=== PATIENT | male | born 1960 | race Caucasian/White ===

== ENCOUNTER 2021-03-14 06:07 | Emergency (ER) | payer OTHER, SELFPAY ==
[2021-03-14] VITALS (15 sets, daily range): BP systolic 113–141; BP diastolic 73–90; PULSE 59–110; RESP 12–16; TEMP 36.6–36.8; O2SAT 93–98
--- NOTE | ~2021-03-14 | XR_ITS ---
EXAMINATION: XR chest 2V DATE: 03/14/2021 06:28 INDICATION: Chest pain TECHNIQUE: PA and lateral views of the chest were obtained. COMPARISON: None FINDINGS: Lungs are hyperexpanded but clear, no focal airspace opacities, pulmonary edema, pleural effusion or pneumothorax. The cardiomediastinal silhouette is normal. Mild thoracic spondylosis with minimal ante rior wedging of a couple lower thoracic vertebral bodies. IMPRESSION: 1. No acute cardiopulmonary disease. Reviewed, dictated and finalized at location A.
--- NOTE | 2021-03-14 06:08 | ECG_ITS ---
Measurements Intervals [place] Rate: 89 P: 82 ID: [id number] QRS: 58 QRSD: 96 T: 75 QT: 333 QTc: 407 Interpretive Statements SINUS RHYTHM POSSIBLE LEFT ATRIAL ENLARGEMENT BASELINE ARTIFACT- I, III, AVR, AVL, AVF, V1-V2 BORDERLINE ECG Electronically Signed On 03-14-2021 6:28:49 CDT by Lang Whitmore D.O.
--- NOTE | 2021-03-14 06:08 | ED.CHESTPAIN ---
HPI - Chest Pain General Chief Complaint: Chest Pain Stated Complaint: CP Time Seen by Provider: 03/14/21 06:08 Source: patient and EMS Mode of arrival: EMS Limitations: no limitations History of Present Illness HPI narrative: Patient is a 61-year-old male who presents for evaluation of chest pain. Patient awakened this morning and noticed that he had dull, aching chest pain in the center of his chest. Described as a pressure without radiation to the back, flank, jaw, neck, or shoulder. Patient without associated diaphoresis. No shortness of breath. He does report mild cough which is chronic for him. Pain has been intermittent over the past 90 days. Patient states that he received his Covid vaccination and has been dealing with many issues since the vaccine. Patient had received 2 doses of Moderna vaccination. He denies any history of Covid infection. No history of hospitalizations. Patient denies history of stress test. No history of heart attack. He does smoke cigarettes. He denies alcohol or drug use. No leg swelling or calf pain. No long recent car or air travel. Patient called EMS this morning when he felt unwell. An EKG was obtained and was normal per EMS. He was given full dose aspirin as well as 2 sprays of nitroglycerin with immediate improvement in his symptoms. Patient denies concurrent diaphoresis, shortness of breath, lightheadedness or nausea with the chest pain. Related Data Home Medications Medication Instructions Recorded Confirmed losartan 100 mg PO DAILY 03/14/21 Allergies Allergy/AdvReac Type Severity Reaction Status Date / Time No Known Allergies Allergy Verified 03/14/21 06:18 Review of Systems Review of Systems: CONSTITUTIONAL: Denies fever, chills, or sweats. EYES: Denies visual changes, redness, or discharge. ENT: Denies rhinorrhea, congestion, sore throat, or otalgia. CARDIOVASCULAR: Chest pain without palpitations or edema RESPIRATORY: Reports chronic cough, denies shortness of breath GASTROINTESTINAL: Denies abdominal pain, nausea, vomiting, or diarrhea. GENITOURINARY: Denies dysuria or hematuria. SKIN: Denies rash or itching. MUSCULOSKELETAL: Denies back pain, joint pain, or myalgia. NEUROLOGIC: Denies headache, numbness, or weakness. [facility] Social History Social History (Updated 03/14/21 @ 06:24 by Mayte Narvaez MD) Smoking status: Current every day smoker Tobacco type: cigarettes Alcohol intake: never Substance use: never Gender identity (if verbalized by the patient): Male Exam Narrative: GENERAL: Awake, alert, conversant HEAD: Normocephalic, atraumatic. EYES: PERRLA and EOMI. ENT: Nares clear, no rhinorrhea or epistaxis. Mucous membranes moist. NECK: Supple. CHEST: No respiratory distress, breathing even and non labored, no chest wall tenderness HEART: Regular rate, sinus rhythm ABDOMEN:Non distended, non tender EXTREMITIES: Normal range of motion. No edema. No calf tenderness bilaterally. SKIN: Warm, dry, no rash. NEURO:No focal deficits. Alert and oriented x3 Course Vital Signs Vital signs: Vital Signs Temperature 36.6 C 03/14/21 06:05 Pulse Rate 107 H 03/14/21 06:05 Respiratory Rate 16 03/14/21 06:05 Blood Pressure 141/90 H 03/14/21 06:05 Pulse Oximetry 96 03/14/21 06:05 Temperature 36.6 C 03/14/21 06:05 Pulse Rate 81 03/14/21 06:34 Respiratory Rate 12 03/14/21 06:34 Blood Pressure 129/76 03/14/21 06:34 Pulse Oximetry 98 03/14/21 06:34 MDM - Chest Pain MDM Narrative Medical decision making narrative: Patient presenting for evaluation of chest pain. At the time of assessment, ABCs are intact and vital signs are stable. Patient is mildly hypertensive and tachycardic. Pain improved fine administration of nitroglycerin. Patient's heart score is 5. He has significant risk factors and a smoking history, given his age he is at risk for acute coronary syndrome and this may be indicative of unstable dima
[2021-03-14 06:20] LABS: Basophils Absolute Auto 0.1 K/mm3 (0.0-0.1); Basophils Percent Auto 1.1 % (0.2-1.2); Eosinophils Absolute Auto 0.3 K/mm3 (0-0.3); Eosinophils Percent Auto 5.1 % (0-4.4); Hematocrit 44.8 % (42.0-52.0); Hemoglobin 15.4 g/dL (14.0-18.0); Immature Granulocyte Absolute 0.02 K/mm3 (0.00-0.031); Immature Granulocyte Percent A 0.3 % (0-0.5); Lymphocytes Absolute Auto 1.05 K/mm3 (0.9-3.2); Lymphocytes Percent Auto 16.1 % (18.3-44.2); Mean Corpuscular HGB Conc 34.4 g/dl (32-36); Mean Corpuscular Hemoglobin 35.2 pg (26-34); Mean Corpuscular Volume 102.5 fl (80-100); Mean Platelet Volume 9.4 fl (7.4-10.4); Monocytes Absolute Auto 0.5 K/mm3 (0.1-0.6); Monocytes Percent Auto 7.7 % (2.6-8.5); Neutrophils Absolute Auto 4.5 K/mm3 (1.3-6.7); Neutrophils Percent Auto 69.7 % (45.5-73.1); Platelet Count Result 247 k/mm3 (150-375); Red Blood Count 4.37 M/mm3 (4.6-6.20); Red Cell Distribution Width 12.7 % (11.5-14.5); White Blood Count 6.5 K/mm3 (4.5-10.0)
--- NOTE | 2021-03-14 06:24 | PC.NURSE ---
Pt to XRAY via stretcher at this time.
[2021-03-14 06:30] LABS: Alanine Aminotransferase 35 U/L (4-50); Albumin Level 4.3 g/dL (3.5-5.1); Alkaline Phosphatase 81 U/L (38-126); Anion Gap 8 mmol/L (8-16); Aspartate Amino Transferase 37 U/L (17-59); Bilirubin,Total 0.4 mg/dL (0.2-1.3); Blood Urea Nitrogen 13 mg/dL (9-20); Carbon Dioxide 23 mmol/L (22-30); Chloride 103 mmol/L (98-107); Estimated CRCL calculation 93 ml/min; Estimated Glomerular Filt Rate > 60; Glucose 106 mg/dL (65-110); Potassium 5.2 mmol/L (3.4-5.0); Sodium 134 mmol/L (137-145)
[2021-03-14 06:31] LABS: INR 0.8; Partial Thromboplastin Time 29.3 SECONDS (22.3-36.8); Prothrombin Time 11.3 Seconds (11.1-14.7)
[2021-03-14] MEDS: MORPHINE SULFATE (*CRX) 4 MG/ML INJ IV PUSH (06:33)
[2021-03-14] MEDS: ONDANSETRON INJ 4 MG/2 ML VIAL IV PUSH (06:33)
[2021-03-14] MEDS: SODIUM CHLORIDE 0.9% IV 1,000 ML 999 ML IV CONT (06:34)
[2021-03-14 06:41] LABS: Troponin I < 0.012 ng/mL (0.000-0.034)
[2021-03-14 07:29] LABS: D Dimer 0.36 ug/mL (<0.48)
[2021-03-14 08:31] LABS: EDCOVIDSCREEN Negative (Negative)
--- NOTE | 2021-03-14 08:50 | PC.NURSE ---
[id number]-PATIENT'S CHART FAXED TO [facility].
--- NOTE | 2021-03-14 08:54 | PC.NURSE ---
[id number]-CALLED TO [facility]. LEFT MESSAGE FOR MALCOLM CASTANEDA RN AT [phone] EXT [phone].
--- NOTE | 2021-03-14 09:30 | PC.NURSE ---
ATTEMPTED TO [facility]. NO RESPONSE PAGE OBTAINED. CALL[facility] AND ATTEMPTED TO SPEAK WITH MALCOLM CASTANEDA RN AT EXTENSION [phone] AND [phone] AND THE CALL ROLLS BACK TO THE PHONE INTRODUCTION SPEECH
[2021-03-14 09:36] LABS: Troponin I < 0.012 ng/mL (0.000-0.034)
--- NOTE | 2021-03-14 09:51 | PC.NURSE ---
SPOKE WITH MALCOLM CASTANEDA RN AT [phone] AND NEW FAX NUMBER [phone] WAS OBTAINED AND CHART WAS RE FAXED.
--- NOTE | 2021-03-14 10:53 | PC.NURSE ---
SPOKE WITH MALCOLM Josue RN AT [facility] AND SHE STATES CHART WAS RECEIVED AND SHE WILL CALL US BACK AFTER THE PHYSICIAN HAS A CHANCE TO REVIEW IT.
--- NOTE | 2021-03-14 11:09 | PC.NURSE ---
SPOKE WITH MALCOLM CASTANEDA AGAIN SINCE PT IS NOW GOING TO BE DISCHARGED FROM THE ED AND DOES NOT REQUIRE [facility]ER TO [facility].
== END 2021-03-14 11:14 | disposition home or self-care (01) ==
PROVIDERS: Emergency Medicine; Emergency Provider Emergency Medicine
DX: R07.89 Other chest pain (principal); Z20.822 Contact with and (suspected) exposure to COVID-19; F17.210 Nicotine dependence, cigarettes, uncomplicated; R94.31 Abnormal electrocardiogram [ECG] [EKG]
CPT/HCPCS: 36415; 71046; 80053; 84484; 85025; 85380; 85610; 85730; 87426; 93005; 96361; 96374; 96375; 99284; C9803; J2270; J2405; J7030

== ENCOUNTER 2021-08-15 16:45 | Observation (INO) | payer OTHER, SELFPAY ==
[2021-08-15] VITALS (36 sets, daily range): BP systolic 141–196; BP diastolic 72–107; PULSE 61–112; RESP 13–37; TEMP 36–36.9; O2SAT 91–98; BMI 22.1
--- NOTE | ~2021-08-15 | XR_ITS ---
EXAMINATION: XR chest 1V portable EXAM DATE: 08/15/2021 17:23 INDICATION: Midsternal CP, SOB, HTN, Dizziness . TECHNIQUE: Portable AP frontal chest x-ray was obtained. Comparison is made to prior examination from 03/14/2021. FINDINGS: The lungs are clear. There are no pleural effusions. The cardiomediastinal silhouette is within normal limits. There is no pneumothorax suspected. The bones and soft tissues are unremarka ble. IMPRESSION: Unremarkable chest x-ray exam. Reviewed, dictated and finalized at location G. CTOR INTERNAL AUDIT
--- NOTE | 2021-08-15 16:57 | ECG_ITS ---
Measurements Intervals [place] Rate: 94 P: 75 RI: 141 QRS: 40 QRSD: 109 T: 69 QT: 340 QTc: 426 Interpretive Statements SINUS RHYTHM BASELINE ARTIFACT- I, II, III, AVR, AVL, AVF, V2-V6 NORMAL ECG Electronically Signed On 08-19-2021 7:51:07 OVERCOILER by Lang Whitmore D.O.
--- NOTE | 2021-08-15 17:16 | ED.CHESTPAIN ---
HPI - Chest Pain General Chief Complaint: Chest Pain <HARRISON Parker Last Filed: 08/15/21 22:02> Stated Complaint: dizzy/chest pain/htn <HARRISON Parker Last Filed: 08/15/21 22:02> Time Seen by Provider: 08/15/21 16:54 <HARRISON Parker Last Filed: 08/15/21 22:02> Source: patient <HARRISON Parker Last Filed: 08/15/21 22:02> Mode of arrival: EMS <HARRISON Parker Last Filed: 08/15/21 22:02> Limitations: no limitations <HARRISON Parker Last Filed: 08/15/21 22:02> History of Present Illness HPI narrative: This is a 61 year old male that presents to the ER for feeling unwell today. Reports since he woke up he has been fatigued, dizzy, has had chest tightness. Reports this morning he had some diarrhea. Also reports a mild cough. Reports he has had a negative stress test last year. Denies fever, abdominal pain, vomiting, or dysuria. <HARRISON Parker Last Filed: 08/15/21 22:02> Related Data Home Medications: Home Medications Medication Instructions Recorded Confirmed losartan 100 mg PO DAILY 03/14/21 <HARRISON Parker Last Filed: 08/15/21 22:02> Allergies/Adverse Reactions: Allergies Allergy/AdvReac Type Severity Reaction Status Date / Time No Known Allergies Allergy Verified 08/15/21 17:29 <HARRISON Parker Last Filed: 08/15/21 22:02> Review of Systems Review of Systems: CONSTITUTIONAL: Denies fever ENT: Denies congestion, sore throat CARDIOVASCULAR: Reports chest pain. Denies edema. RESPIRATORY: Reports cough and dyspnea. GASTROINTESTINAL: Reports diarrhea. Denies abdominal pain, nausea, vomiting GENITOURINARY: Denies dysuria <HARRISON Parker Last Filed: 08/15/21 22:02> All systems reviewed & are unremarkable except as noted in HPI and below <Guerda Ortiz PA-C - Last Filed: 08/15/21 22:02> PMFSH Past Medical History Medical History: Medical History (Updated 08/15/21 @ 22:02 by Guerda Ortiz PA-C) Hypertension <Guerda Ortiz PA-C - Last Filed: 08/15/21 22:02> Social History Social History: Social History (Updated 03/14/21 @ 06:24 by Mayte Narvaez MD) Smoking status: Current every day smoker Tobacco type: cigarettes Alcohol intake: never Substance use: never Gender identity (if verbalized by the patient): Male <Guerda Ortiz PA-C - Last Filed: 08/15/21 22:02> Exam Narrative: GENERAL: Well-appearing, well-nourished, and in no acute distress. HEAD: Normocephalic, atraumatic. EYES: EOMI. ENT: Nares clear, no rhinorrhea or epistaxis. Mucous membranes moist. Oropharynx erythematous, without tonsillar hypertrophy exudate or other lesions. Bilateral TMs pearly decker non-bulging NECK: Supple. No adenopathy or masses. CHEST: Clear to auscultation. No respiratory distress. No wheezes rales or rhonchi HEART: Regular rate and rhythm. No murmur heard. Normal peripheral pulses. ABDOMEN: Soft, nontender, nondistended, normal active bowel sounds. EXTREMITIES: Normal range of motion. No edema. SKIN: Warm, dry, no rash. NEURO: No focal deficits. Alert and oriented x3. PSYCH: Normal mood and affect <Guerda Ortiz PA-C - Last Filed: 08/15/21 22:02> Course CUSTOMER SERVICE PROFESSIONAL/PA Physician Supervision For this patient encounter, I reviewed the CUSTOMER SERVICE PROFESSIONAL or PA documentation, treatment plan, and medical decision making; and I had [id number] time with this patient. <Ifeanyi Rosales MD - Last Filed: 08/15/21 22:04> Consultations Consultation #1: Spoke with hospitalist about patient and work-up who accepts admission <Guerda Ortiz PA-C - Last Filed: 08/15/21 22:02> Date: 08/15/21 <Guerda Ortiz PA-C - Last Filed: 08/15/21 22:02> Time: 22:01 <Guerda Ortiz PA-C - Last Filed: 08/15/21 22:02> Vital Signs Vital signs: Vital Signs Temperature 97.9 F 08/15/21 16:53 Pulse Rate 108 H 08/15/21 16:53 Respiratory Rate 24
[2021-08-15 17:20] LABS: Basophils Absolute Auto 0.1 K/mm3 (0.0-0.1); Basophils Percent Auto 1.4 % (0.2-1.2); Eosinophils Absolute Auto 0.1 K/mm3 (0-0.3); Eosinophils Percent Auto 1.4 % (0-4.4); Hematocrit 42.1 % (42.0-52.0); Hemoglobin 15.1 g/dL (14.0-18.0); Immature Granulocyte Absolute 0.03 K/mm3 (0.00-0.031); Immature Granulocyte Percent A 0.3 % (0-0.5); Lymphocytes Absolute Auto 1.94 K/mm3 (0.9-3.2); Lymphocytes Percent Auto 21.8 % (18.3-44.2); Mean Corpuscular HGB Conc 35.9 g/dl (32-36); Mean Corpuscular Hemoglobin 34.9 pg (26-34); Mean Corpuscular Volume 97.2 fl (80-100); Mean Platelet Volume 9.7 fl (7.4-10.4); Monocytes Absolute Auto 0.5 K/mm3 (0.1-0.6); Monocytes Percent Auto 5.4 % (2.6-8.5); Neutrophils Absolute Auto 6.2 K/mm3 (1.3-6.7); Neutrophils Percent Auto 69.7 % (45.5-73.1); Platelet Count Result 237 k/mm3 (150-375); Red Blood Count 4.33 M/mm3 (4.6-6.20); Red Cell Distribution Width 12.5 % (11.5-14.5); White Blood Count 8.9 K/mm3 (4.5-10.0)
[2021-08-15 17:29] LABS: Partial Thromboplastin Time 29.5 SECONDS (22.3-36.8); Prothrombin Time 12.4 Seconds (11.1-14.7)
[2021-08-15 17:31] LABS: Alanine Aminotransferase 30 U/L (4-50); Albumin Level 4.6 g/dL (3.5-5.1); Alkaline Phosphatase 106 U/L (38-126); Anion Gap 15 mmol/L (8-16); Aspartate Amino Transferase 47 U/L (17-59); Bilirubin,Total 1.1 mg/dL (0.2-1.3); Blood Urea Nitrogen 12 mg/dL (9-20); Carbon Dioxide 17 mmol/L (22-30); Chloride 100 mmol/L (98-107); Estimated CRCL calculation 90 ml/min; Estimated Glomerular Filt Rate > 60; Glucose 83 mg/dL (65-110); Lipase 76 U/L (23-300); Potassium 4.2 mmol/L (3.4-5.0); Sodium 132 mmol/L (137-145)
[2021-08-15] MEDS: MECLIZINE HCL 25 MG TABLET PO (17:40)
[2021-08-15] MEDS: ONDANSETRON INJ 4 MG/2 ML VIAL IV PUSH (17:40)
[2021-08-15] MEDS: SODIUM CHLORIDE 0.9% IV 500 ML 999 ML IV CONT (17:40)
[2021-08-15 17:43] LABS: Troponin I < 0.012 ng/mL (0.000-0.034)
[2021-08-15 18:36] LABS: Influenza A QL RT-PCR Negative (Negative); Influenza B QL RT-PCR Negative (Negative); SARS-CoV-2 RNA PCR Negative
[2021-08-15 19:03] LABS: D Dimer 0.33 ug/mL (<0.48)
[2021-08-15] MEDS: PANTOPRAZOLE SODIUM IV 40 MG VIAL IV PUSH (20:09)
[2021-08-15] MEDS: KETOROLAC 30 MG/ML VIAL (*BKC) IV PUSH (20:09)
[2021-08-15] MEDS: LORazepam INJ (*CRX) 2 MG/ML VIAL 0.5 MG IV PUSH (20:09)
[2021-08-15 20:20] LABS: Troponin I < 0.012 ng/mL (0.000-0.034)
[2021-08-15] MEDS: LABETALOL HCL INJ 100 MG/20 ML VIAL 20 MG IV PUSH (21:02)
--- NOTE | 2021-08-15 21:59 | PM.IMHP ---
H&P: HPI History of Present Illness Date/Time: 08/15/21 21:59 Chief Complaint: Chest pain Narrative: This is a 61-year-old male with past medical history significant for hypertension, patient also smokes 1 pack of cigarettes daily, present to the emergency room due to chest tightness, shortness of breath, not feeling well overall. Patient denies any leg swelling, dizziness, patient has a chronic cough but no change in sputum, no abdominal pain, no nausea, no vomiting, no diarrhea, no orthopnea, no syncope, near syncope, no dizziness, has some ankle swelling. In emergency room patient was found to have a systolic blood pressure in the 200s for which he received hydralazine. Decision has been made to place the patient in observation for further evaluation, management and treatment. Review of Systems Review of Systems: Chest tightness, dizziness. Constitutional: Constitutional: Denies fatigue, Denies fever(s), Denies malaise, Denies night sweats and Denies weakness Eyes: Eyes: Denies change in vision ENT: Denies dysphagia, Reports dizziness, Denies nasal congestion, Denies nasal discharge, Denies nasal obstruction and Denies odynophagia Cardiovascular: Cardiovascular: Reports chest pain, Denies claudication, Reports leg edema, Reports lightheadedness, Denies radiating jaw, neck or arm pain, Denies palpitations, Denies dyspnea on exertion and Denies orthopnea Respiratory: Respiratory: Reports cough and Denies dyspnea Gastrointestinal: Gastrointestinal: Denies abdominal pain, Denies dyspepsia, Denies heartburn, Denies diarrhea, Denies nausea and Denies vomiting Genitourinary: Genitourinary: Reports no additional male genitourinary complaints and Reports as per HPI Musculoskeletal: Musculoskeletal: Denies myalgias Integumentary/Breasts: Skin/Breast: Denies rash Neurologic: Reports dizziness, Denies focal weakness and Denies Sensory deficit (Neuro) Psychiatric: Psychiatric: Reports no additional psychiatric complaints and Reports as per HPI Endocrine: Endocrine: Denies cold intolerance, Denies flushing, Denies heat intolerance, Denies polyphagia, Denies polydipsia and Denies palpitations Hematologic/Lymphatic: Hematologic/Lymphatic: Reports no additional hematologic/lymphatic complaints and Reports as per HPI Allergic/Immunologic: Allergic/Immunologic: Reports no additional allergic/immunologic complaints and Reports as per HPI [facility] Past Medical History Medical History (Updated 08/16/21 @ 05:56 by Tremaine Srinivasan MD) Hypertension Social History Social History (Updated 03/14/21 @ 06:24 by Mayte Narvaez MD) Smoking status: Current every day smoker Alcohol intake: never Substance use: never Gender identity (if verbalized by the patient): Male Spiritual care concerns: No Meds Home Medications and Allergies Home Medications Medication Instructions Recorded Confirmed Type losartan 100 mg PO DAILY 03/14/21 08/15/21 History nitroglycerin 0.4 mg SUBLINGUAL Q5M PRN #30 03/14/21 08/15/21 Rx tablet Allergies Allergy/AdvReac Type Severity Reaction Status Date / Time No Known Allergies Allergy Verified 08/15/21 17:29 Vital Signs Vital Signs - 24 hr 08/15/21 16:53 08/15/21 17:09 08/15/21 17:15 Temperature 97.9 F Pulse Rate 108 H 112 H 91 Respiratory Rate 24 H 20 25 H Blood Pressure 146/89 H Pulse Oximetry 97 08/15/21 19:31 08/15/21 19:32 08/15/21 19:33 Temperature Pulse Rate 82 77 79 Respiratory Rate 14 17 Blood Pressure 156/96 H Pulse Oximetry 98 97 97 08/15/21 19:51 08/15/21 19:54 08/15/21 20:00 Temperature 98.5 F Pulse Rate 75 76 Respiratory Rate 20 14 Blood Pressure Pulse Oximetry 97 95 08/15/21 20:15 08/15/21 20:18 Temperature Pulse Rate 73 78 Respiratory Rate 18 20 Blood Pressure 182/88 H Pulse Oximetry 92 93 Exam Narrative: Patient is laying in the stretcher Const: General: cooperative, comfortable, no acute distress, wel
--- NOTE | 2021-08-15 23:32 | ADMGEN ---
This patient, Chan Delgado, was admitted to [facility] as an IMU overflow at 2332. Patient/family oriented to hospital policies and general routines including ID bracelet, bed and alarms, visiting hours, pain management, procedures, bathroom and other care routines, personal items, smoking policy, room service/diet, and visiting hours. Information on how to activate the Rapid Response Team has been discussed. Patient/Family are encouraged to report perceived risks to care and to ask questions if they do not understand what they are told or what they should do.
[2021-08-16] VITALS (15 sets, daily range): BP systolic 169–189; BP diastolic 86–98; PULSE 57–90; RESP 15–18; TEMP 35.9–36.6; O2SAT 93–98
--- NOTE | 2021-08-16 | ECHO_ITS ---
Patient Info Name: Chan Delgado Age: 61 years : 1960 Gender: Male Ht: 72 in Wt: 163 lbs BSA: 1.94 m2 HR: 90 bpm BP: 169 / 98 mmHg Heart Rhythm: Sinus Rhythm Technical Quality: Fair Exam Date: 08/16/2021 8:35 AM Exam Location: [facility] Card Pulmonary Patient Status: Inpatient Admit Date: 08/15/2021 Staff Ordering Physician: Tremaine Srinivasan MD Street Light Inspector: Amelia Bennett RDCS Attending Provider: Tremaine Srinivasan MD Referring Physician: Zarina ORTEGA; Exam Type: CA echo doppler color flow Study Info Indications - uncontrolled htn Complete two-dimensional, color flow and Doppler transthoracic echocardiogram is performed. Summary 1. Complete two-dimensional, color flow and Doppler transthoracic echocardiogram is performed. 2. Left ventricular chamber dimension is normal. 3. Left ventricular systolic function is normal, estimated at 60-65%. 4. There is mildly increased left ventricular wall thickness. 5. The left ventricular diastolic function is grade II diastolic dysfunction. 6. There is no aortic valve stenosis. 7. There is trace mitral valve regurgitation. 8. There is trace tricuspid valve regurgitation. 9. No pulmonary hypertension, estimated pulmonary arterial systolic pressure is 19 mmHg. Left Ventricle Left ventricular chamber dimension is normal. Left ventricular systolic function is normal, estimated at 60-65%. There is mildly increased left ventricular wall thickness. The left ventricular diastolic function is grade II diastolic dysfunction. Right Ventricle Right ventricular chamber dimension is normal. Right ventricular systolic function is normal. Left Atria Left atrial chamber dimension is mildly enlarged. Right Atria Right atrial chamber dimension is mildly enlarged. Aortic Valve The aortic valve is not well visualized. There is no aortic valve stenosis. There is trace aortic valve regurgitation. Pulmonic Valve The pulmonic valve is not well visualized. Mitral Valve The mitral valve has normal leaflets. There is trace mitral valve regurgitation. Tricuspid Valve The tricuspid valve leaflets are normal. There is trace tricuspid valve regurgitation. No pulmonary hypertension, estimated pulmonary arterial systolic pressure is 19 mmHg. Pericardium/Pleural The pericardium appears normal. There is no pericardial effusion. Inferior Vena Cava Normal inferior vena cava with >50% collapse upon inspiration consistent with normal right atrial pressure, 5 mmHg. Aorta The aortic root size at the sinus of Valsalva is normal. Left Ventricular Outflow Tract Name Value Normal LVOT 2D LVOT Diameter 2.1 cm LVOT Doppler LVOT Peak Gradient 5 mmHg LVOT Mean Gradient 2 mmHg LVOT VTI 22 cm LVOT VTI/AV VTI Ratio 0.6 LVOT Stroke Volume 75 ml LVOT CO 4.7 l/min LVOT CI 2.4 l/min/m2 Pulmonic Valve
[2021-08-16 03:58] LABS: Troponin I < 0.012 ng/mL (0.000-0.034)
[2021-08-16] MEDS: LOSARTAN POTASSIUM 100 MG TABLET PO (09:15)
--- NOTE | 2021-08-16 09:35 | PM.IMPN ---
Progress Note: A&P Assessment and Plan (1) Hypertensive urgency: Code(s): I16.0 - Hypertensive urgency Status: Acute Assessment and Plan: Place in observation Restart home meds Echocardiogram in a.m. (2) Chest pain: Qualifiers: Chest pain type: unspecified Qualified Code(s): R07.9 - Chest pain, unspecified Code(s): R07.9 - Chest pain, unspecified Status: Acute Assessment and Plan: Troponins x3 negative EKG with no acute changes (3) Tobacco dependence: Code(s): F17.200 - Nicotine dependence, unspecified, uncomplicated Status: Acute Assessment and Plan: Patient consult about tobacco cessation Nicotine patch as needed Additional Plan 08/16/2021 Plan is to continue current plan of care and treatment. Monitor blood pressure closely. Cardiology evaluation Subjective Date/time seen: 08/16/21 09:35 Patient was seen during the morning rounds today. Patient denies any shortness of breath or chest. No abdominal pain, nausea, vomiting. Mood stable Review of Systems Constitutional: Constitutional: Denies fatigue, Denies fever(s), Denies malaise, Denies night sweats and Denies weakness Eyes: Eyes: Denies change in vision ENT: Denies dysphagia, Reports dizziness, Denies nasal congestion, Denies nasal discharge, Denies nasal obstruction and Denies odynophagia Cardiovascular: Cardiovascular: Reports chest pain, Denies claudication, Reports leg edema, Reports lightheadedness, Denies radiating jaw, neck or arm pain, Denies palpitations, Denies dyspnea, Denies dyspnea on exertion and Denies orthopnea Respiratory: Respiratory: Reports cough, Denies dyspnea and Denies dyspnea on exertion Gastrointestinal: Gastrointestinal: Denies abdominal pain, Denies dysphagia, Denies dyspepsia, Denies heartburn, Denies diarrhea, Denies nausea, Denies odynophagia and Denies vomiting Genitourinary: Genitourinary: Reports no additional male genitourinary complaints and Reports as per HPI Musculoskeletal: Musculoskeletal: Denies myalgias Integumentary/Breasts: Skin/Breast: Denies rash Neurologic: Reports dizziness, Denies focal weakness, Denies Sensory deficit (Neuro) and Denies weakness Psychiatric: Psychiatric: Reports no additional psychiatric complaints and Reports as per HPI Endocrine: Endocrine: Denies cold intolerance, Denies fatigue, Denies flushing, Denies heat intolerance, Denies polyphagia, Denies polydipsia and Denies palpitations Hematologic/Lymphatic: Hematologic/Lymphatic: Reports no additional hematologic/lymphatic complaints and Reports as per HPI Allergic/Immunologic: Allergic/Immunologic: Reports no additional allergic/immunologic complaints and Reports as per HPI Exam Narrative: Patient is laying in the stretcher Const: General: cooperative, comfortable, no acute distress, well developed, alert, awake and ill appearing chronically Nutritional Appearance: average body habitus Orientation/consciousness: patient oriented x3 HENMT: Head: normal to inspection, normocephalic and atraumatic Ears: hearing grossly normal bilaterally General nose exam: Normal external nose present Face and sinus: normal facial exam Eyes: General: appearance normal, both eyes and all related structures Alignment and Position: alignment normal Sclera: sclerae normal Pupils: Equal, round and reactive pupils present EOM: EOMs intact bilaterally Neck: Neck: normal visual inspection, full ROM, no lymphadenopathy, supple and no JVD Thyroid: thyroid normal Lymphatic: no lymphadenopathy noted Resp: Effort & Inspection: normal respiratory effort and able to speak in complete sentences Auscultation: clear to auscultation bilaterally, no crackles, no rales, no rhonchi, no wheezes and diminished lung sounds Cardio: Jugular venous distension: no JVD Rate: regular rate Rhythm: regular rhythm Heart sounds: S1 normal heart sound present and S2 normal heart sound present GI: Inspection: nor
--- NOTE | 2021-08-16 15:32 | PM.CNCAR ---
Assessment and Plan Assessment and plan (1) Chest pain: Qualifiers: Chest pain type: unspecified Qualified Code(s): R07.9 - Chest pain, unspecified <Marina Nel CANELO Suárez - Last Filed: 08/16/21 16:22> Code(s): R07.9 - Chest pain, unspecified <Marina Nel HartleyCANELO joel - Last Filed: 08/16/21 16:22> Status: Acute <Marina A. CANELO Suárez - Last Filed: 08/16/21 16:22> Assessment and Plan: Presented to the hospital with complaints of chest pain that have been ongoing for about 1 day. Atypical chest pain that by patient report has been evaluated within the past 6 months by a Lexiscan stress test at [facility]. I do not have records of the results of this but the patient states that the test was negative. Here at [place] he has had negative serial troponins and his EKG shows normal sinus rhythm with no ST or T-wave abnormalities concerning for ischemia. Echocardiogram performed today showed normal systolic function with an EF of 60-65%. No regional wall motion abnormalities. He does have grade 2 diastolic dysfunction. He is currently free from chest pain. He is hypertensive which may be contributing to his chest discomfort. Will adjust his antihypertensives and he should follow-up with his primary care doctor to ensure that his blood pressure is better controlled. No evidence to support that his chest pain is related to ACS. <CANELO Grant - Last Filed: 08/16/21 16:22> (2) Hypertensive urgency: Code(s): I16.0 - Hypertensive urgency <CANELO Grant - Last Filed: 08/16/21 16:22> Status: Acute <Marina SegoviaGregory CANELO Suárez - Last Filed: 08/16/21 16:22> Assessment and Plan: SBP has been in the 140s to 196 during this admission. He takes 100 mg of losartan at home. Will add Norvasc 5 mg daily. Give 1st dose now. <CANELO Grant - Last Filed: 08/16/21 16:22> (3) Tobacco dependence: Code(s): F17.200 - Nicotine dependence, unspecified, uncomplicated <CANELO Grant - Last Filed: 08/16/21 16:22> Status: Acute <CANELO Grant - Last Filed: 08/16/21 16:22> Assessment and Plan: I counseled him on the importance of smoking cessation. <CANELO Grant - Last Filed: 08/16/21 16:22> Additional Plan Attending Addendum: I have personally seen and examined this patient at bedside. I agree with the above documentation and plan of care as outlined. -pleasant 61-year-old male hypertension tobacco abuse, anxiety with intermittent recurrent atypical chest pain described as tightness no exacerbation with activity or associated shortness breath nausea or diaphoresis. He reports having at least 2 negative stress tests and indicated these chest pain episodes began after having his Moderna COVID vaccination last October. He also states he quit smoking last year but restarted in September and in October had his 1st episode of chest pain. Chest will come on randomly is persistent, last 1-2 days no exacerbation with activity, position or meals. It will resolve spontaneously but makes him very anxious. He has a lot of anxiety he admits. He has always been told everything is fine but also acknowledges his blood pressures been very high during these episodes. This hospitalization he ruled out for myocardial infarction with negative enzymes, BP was very elevated up to 200 mm Hg. Chest pain resolved spontaneously he states. Last stress test was 6 months ago at [facility]. He does not have limiting exertional dyspnea or chest pain in the interval. He continues to smoke and lives and works at the [employer]. No known history of CAD myocardial infarction, CHF, DVT/PE. He states Xanax helped him tremendously on 1 occasion from his mother. Nitroglycerin has worked previously but not this time. Also reported in the ER record he had some diarrhea, fatigue, dizziness along with his chest pain and mild cough. He is n
--- NOTE | 2021-08-16 16:14 | PM.DS ---
DS: Admitting Diagnosis Discharge Date 08/16/2021 Admitting Diagnosis Hypertensive urgency 1. 2. Atypical chest DS: Discharge Diagnosis Discharge Diagnosis (1) Hypertensive urgency: Code(s): I16.0 - Hypertensive urgency Status: Acute Assessment and Plan: Place in observation Restart home meds Echocardiogram in a.m. (2) Chest pain: Qualifiers: Chest pain type: unspecified Qualified Code(s): R07.9 - Chest pain, unspecified Code(s): R07.9 - Chest pain, unspecified Status: Acute Assessment and Plan: Troponins x3 negative EKG with no acute changes (3) Tobacco dependence: Code(s): F17.200 - Nicotine dependence, unspecified, uncomplicated Status: Acute Assessment and Plan: Patient consult about tobacco cessation Nicotine patch as needed DS: Summary Hospital Course Reason for hospitalization: Hypertensive urgency Atypical chest pain Hospital Course: 61 years old male was admitted complained of having atypical chest pain and also high blood pressure. Patient has 3 sets of cardiac enzymes done and they were negative. Cardiology consult was done recommended to add amlodipine to his treatment. Today patient is feeling better so patient discharged home in stable condition. Follow-up scheduled with cardiology and primary care physician outpatient next week. Time spent discussing smoking cessation with patient: 3 to 10 minutes Status at Discharge Cognitive/behavioral status at discharge: Stable Functional status at discharge: independent ambulation Overall status at discharge: patient is back to baseline Time Spent with Patient Time attestation: Total time spent providing and/or coordinating discharge services: Time spent: Less than 30 minutes Exam Const: General: cooperative and no acute distress Orientation/consciousness: oriented to person, oriented to place, oriented to time and patient oriented x3 HENMT: Head: normal to inspection Ears: hearing grossly normal bilaterally and external ears normal General nose exam: Normal external nose present Face and sinus: normal facial exam Mouth: Yes Normal oral and palatal mucosa present Eyes: General: appearance normal, both eyes and all related structures Neck: Neck: normal visual inspection and full ROM Chest: Chest palpation & inspection: normal inspection of the chest and normal palpation of entire chest wall Resp: Effort & Inspection: normal respiratory effort Auscultation: clear to auscultation bilaterally Cardio: Jugular venous distension: no JVD Palpation: normal PMI Rate: regular rate Heart sounds: S1 normal heart sound present and S2 normal heart sound present GI: Inspection: normal to inspection GI Palp: No abdominal tenderness Neuro: General: oriented to person, oriented to place, oriented to time and patient oriented x3 Cranial nerves: Yes CN's II-XII intact bilaterally Speech: normal speech Gait exam (Neuro): Normal gait present Motor exam (neuro): 5/5 motor strength present throughout Sensory Exam: normal sensation Psych: Appearance: grossly normal DS: Data Data Completed and Pending Labs on day of discharge: Labs from last 24 hours 08/16/21 08/15/21 08/15/21 00:21 19:51 17:31 WBC RBC Hgb Hct MCV MCH MCHC RDW Plt Count MPV Immature Gran % (Auto) Neut % (Auto) Lymph % (Auto) [place] % (Auto) Eos % (Auto) Baso % (Auto) Lymph # (Auto) [place] # (Auto) Eos # (Auto) Baso # (Auto) Abs Immat Gran (auto) Absolute Neuts (auto) Absolute Nucleated RBC Nucleated RBC % PT INR APTT D-Dimer Sodium Potassium Chloride Carbon Dioxide Anion Gap BUN Creatinine Estim Creat Clear Calc Estimated GFR Glucose Calcium Total Bilirubin AST ALT Alkaline Phosphatase Troponin I < 0.012 < 0.012 Total Protein Albumin Lipase Influenza A (RT-PCR)
[2021-08-16] MEDS: amLODIPine BESYLATE 5 MG TABLET PO (16:27)
--- NOTE | 2021-08-16 17:02 | PM.IMPN ---
Progress Note: A&P Assessment and Plan (1) Hypertensive urgency: Code(s): I16.0 - Hypertensive urgency Status: Acute Assessment and Plan: Place in observation Restart home meds Echocardiogram in a.m. (2) Chest pain: Qualifiers: Chest pain type: unspecified Qualified Code(s): R07.9 - Chest pain, unspecified Code(s): R07.9 - Chest pain, unspecified Status: Acute Assessment and Plan: Troponins x3 negative EKG with no acute changes (3) Tobacco dependence: Code(s): F17.200 - Nicotine dependence, unspecified, uncomplicated Status: Acute Assessment and Plan: 08/16/2021 Cardiology consult order. Three sets of cardiac enzymes ordered. Will add amlodipine to control pressure better. Patient was given counseling about tobacco cessation Nicotine patch as needed Subjective Date/time seen: 08/16/21 17:02 Patient was seen during morning rounds today. Patient denies any shortness of breath or chest pain. No abdominal pain, nausea, no vomiting. Mood stable. Review of Systems Review of Systems: All systems reviewed & are unremarkable except as noted in HPI and below (the history and physical examination) Exam Const: General: cooperative and no acute distress Orientation/consciousness: oriented to person, oriented to place, oriented to time and patient oriented x3 HENMT: Head: normal to inspection Ears: hearing grossly normal bilaterally and external ears normal General nose exam: Normal external nose present Face and sinus: normal facial exam Mouth: Yes Normal oral and palatal mucosa present Eyes: General: appearance normal, both eyes and all related structures Neck: Neck: normal visual inspection and full ROM Chest: Chest palpation & inspection: normal inspection of the chest and normal palpation of entire chest wall Resp: Effort & Inspection: normal respiratory effort Auscultation: clear to auscultation bilaterally Cardio: Jugular venous distension: no JVD Palpation: normal PMI Rate: regular rate Heart sounds: S1 normal heart sound present and S2 normal heart sound present GI: Inspection: normal to inspection Neuro: General: oriented to person, oriented to place, oriented to time and patient oriented x3 Cranial nerves: Yes CN's II-XII intact bilaterally Speech: normal speech Gait exam (Neuro): Normal gait present Motor exam (neuro): 5/5 motor strength present throughout Sensory Exam: normal sensation Psych: Appearance: grossly normal Objective Data Vital Signs Vital Signs: Vital Signs - 24 hr 08/15/21 17:09 08/15/21 17:15 08/15/21 19:31 Temperature Pulse Rate 112 H 91 82 Respiratory Rate 20 25 H Blood Pressure Pulse Oximetry 98 08/15/21 19:32 08/15/21 19:33 08/15/21 19:51 Temperature 36.9 C Pulse Rate 77 79 Respiratory Rate 14 17 Blood Pressure 156/96 H Pulse Oximetry 97 97 08/15/21 19:54 08/15/21 20:00 08/15/21 20:15 Temperature Pulse Rate 75 76 73 Respiratory Rate 20 14 18 Blood Pressure Pulse Oximetry 97 95 92 08/15/21 20:18 08/15/21 20:19 08/15/21 20:40 Temperature Pulse Rate 78 103 H 70 Respiratory Rate 20 26 H 18 Blood Pressure 182/88 H Pulse Oximetry 93 94 91 08/15/21 20:45 08/15/21 20:46 08/15/21 21:00 Temperature Pulse Rate 76 107 H 77 Respiratory Rate 18 37 H 16 Blood Pressure 173/82 H Pulse Oximetry 92 92 08/15/21 21:01 08/15/21 21:04 08/15/21 21:15 Temperature Pulse Rate 69 76 71 Respiratory Rate 17 23 H 18 Blood Pressure 179/107 H 177/97 H Pulse Oximetry 92 92 93 08/15/21 21:16 08/15/21 21:32 08/15/21 21:45 Temperature Pulse Rate 73 70 67 Respiratory Rate 17 16 18 Blood Pressure 143/72 H Pulse Oximetry 93 93 93 08/15/21 21:46 08/15/21 22:01 08/15/21 22:02 Temperature Pulse Rate 74 64 61 Respiratory Rate 18 19 13 Blood Pressure 141/81 H 143/76 H Pulse Oximetry 93 94 95 08/15/21 22:15 08/15/21 22:16 08/15/21 22:3
[2021-08-17] VITALS (7 sets, daily range): BP systolic 156–173; BP diastolic 87–103; PULSE 56–93; RESP 10–18; TEMP 36.3–36.4; O2SAT 96–97
[2021-08-17] MEDS: LOSARTAN POTASSIUM 100 MG TABLET PO (08:11)
[2021-08-17] MEDS: amLODIPine BESYLATE 5 MG TABLET PO (08:32)
--- NOTE | 2021-08-17 09:52 | PM.DS ---
DS: Admitting Diagnosis Discharge Date 08/17/2021 Admitting Diagnosis Hypertensive urgency Atypical chest pain DS: Discharge Diagnosis Discharge Diagnosis (1) Hypertensive urgency: Code(s): I16.0 - Hypertensive urgency Status: Acute Assessment and Plan: Place in observation Restart home meds Echocardiogram in a.m. (2) Chest pain: Qualifiers: Chest pain type: unspecified Qualified Code(s): R07.9 - Chest pain, unspecified Code(s): R07.9 - Chest pain, unspecified Status: Acute Assessment and Plan: Troponins x3 negative EKG with no acute changes (3) Tobacco dependence: Code(s): F17.200 - Nicotine dependence, unspecified, uncomplicated Status: Acute Assessment and Plan: 08/16/2021 Cardiology consult order. Three sets of cardiac enzymes ordered. Will add amlodipine to control pressure better. Patient was given counseling about tobacco cessation Nicotine patch as needed DS: Summary Hospital Course Reason for hospitalization: Hypertensive urgency Atypical chest pain Hospital Course: 61-year-old male was admitted complained of having high blood pressure. Patient also have atypical chest pain. Patient's serial cardiac enzymes were negative. Cardiology adjusted blood pressure medication. Patient did not have any complication during the stay in the hospital. Today patient is feeling better so patient discharged home in stable condition. Blood pressure will be followed up closely as an outpatient. Time spent discussing smoking cessation with patient: 3 to 10 minutes Status at Discharge Cognitive/behavioral status at discharge: Stable Functional status at discharge: independent ambulation Time Spent with Patient Time attestation: Total time spent providing and/or coordinating discharge services: Time spent: Less than 30 minutes Exam Const: General: cooperative and no acute distress Orientation/consciousness: oriented to person, oriented to place, oriented to time and patient oriented x3 HENMT: Head: normal to inspection Ears: hearing grossly normal bilaterally and external ears normal General nose exam: Normal external nose present Face and sinus: normal facial exam Mouth: Yes Normal oral and palatal mucosa present Eyes: General: appearance normal, both eyes and all related structures Neck: Neck: normal visual inspection and full ROM Chest: Chest palpation & inspection: normal inspection of the chest and normal palpation of entire chest wall Resp: Effort & Inspection: normal respiratory effort Auscultation: clear to auscultation bilaterally Cardio: Jugular venous distension: no JVD Palpation: normal PMI Rate: regular rate Heart sounds: S1 normal heart sound present and S2 normal heart sound present GI: Inspection: normal to inspection Neuro: General: oriented to person, oriented to place, oriented to time and patient oriented x3 Cranial nerves: Yes CN's II-XII intact bilaterally Speech: normal speech Gait exam (Neuro): Normal gait present Motor exam (neuro): 5/5 motor strength present throughout Sensory Exam: normal sensation Psych: Appearance: grossly normal Discharge Plan Discharge Attending physician on discharge: Jeremy Lombardo Consulting providers: Marina Suárez ; Guerda Ortiz Discharging Clinician: Jeremy Lombardo Patient Disposition: Home, Self-Care Activity: as tolerated Diet: heart healthy Patient Instructions: Antibiotic Form, How to Stop Smoking (GEN) Stand Alone Forms: General Discharge Information Follow-up/Referrals: Marina Suárez, ALYSON[facility]C [Advanced Practice Nurse] - [facility] [Primary Care Provider] - Discharge Medications: New amlodipine [Norvasc] 5 mg tablet 5 mg PO DAILY Qty: 30 RF: 0 Continued losartan 100 mg Tablet 100 mg PO DAILY RF: 0 nitroglycerin 0.4 mg tablet, sublingual 0.4 mg sublingual Q5M PRN (Reason: chest pain) Qty: 30 RF: 0 Date of admissi
--- NOTE | 2021-08-17 10:39 | PM.PNCARD ---
Progress Note: A&P Assessment and Plan (1) Chest pain: Qualifiers: Chest pain type: unspecified Qualified Code(s): R07.9 - Chest pain, unspecified Code(s): R07.9 - Chest pain, unspecified Status: Acute Assessment and Plan: Presented to the hospital with complaints of chest pain that have been ongoing for about 1 day. Atypical chest pain that by patient report has been evaluated within the past 6 months by a Lexiscan stress test at [facility]. Chest pain is likely secondary to either to marked hypertension or more likely stress/anxiety. Currently resolved. Okay for discharge (2) Hypertensive urgency: Code(s): I16.0 - Hypertensive urgency Status: Acute Assessment and Plan: Continue losartan and amlodipine. Needs follow-up with PCP as an outpatient for further uptitration to his medical regimen to achieve a blood pressure goal of at least less than 140/85 and ideally less than 130/80 (3) Tobacco dependence: Code(s): F17.200 - Nicotine dependence, unspecified, uncomplicated Status: Acute Assessment and Plan: I counseled him on the importance of smoking cessation. Subjective Date/time seen: 08/17/21 10:39 Interval history: 61-year-old admitted for chest pain and marked hypertension. Date of service 08/17/2021: He is feeling well today. Admits that anxiety is a major component to his chest pain. He has no chest pain at this point. Blood pressure is better controlled albeit not perfect yet. Further up titration as need be as an outpatient. No shortness of breath. Review of Systems Constitutional: Constitutional: Denies excessive sweating, Reports fatigue, Denies headache(s) and Reports lethargy Eyes: Eyes: Reports blurry vision ENT: Reports Normal hearing present, Denies headache(s) and Denies tinnitus Cardiovascular: Cardiovascular: Reports chest pain, Denies diaphoresis, Denies pedal edema, Denies leg edema, Denies lightheadedness, Denies palpitations, Denies dyspnea and Denies dyspnea on exertion Respiratory: Respiratory: Denies chest congestion, Denies dyspnea, Denies dyspnea on exertion and Denies wheezing Gastrointestinal: Gastrointestinal: Denies abdominal pain and Denies constipation Genitourinary: Genitourinary: Denies hematuria, Denies dysuria and Denies urinary incontinence Musculoskeletal: Musculoskeletal: Denies back pain, Denies myalgias, Denies joint swelling and Denies numbness Integumentary/Breasts: Skin/Breast: Denies unusual bruising and Denies wounds Neurologic: Reports Normal hearing present, Denies confusion, Denies headache(s) and Denies numbness Psychiatric: Psychiatric: Reports anxiety, Denies confusion and Denies depression Endocrine: Endocrine: Denies excessive sweating, Reports fatigue and Denies palpitations Hematologic/Lymphatic: Hematologic/Lymphatic: Denies easy bleeding and Denies easy bruising Allergic/Immunologic: Allergic/Immunologic: Denies GI upset with certain foods and Denies wheezing Exam Const: General: comfortable and no acute distress; No confusion Orientation/consciousness: No confusion HENMT: Head: normal to inspection Eyes: General: appearance normal, both eyes and all related structures Pupils: Equal, round and reactive pupils present Neck: Neck: supple and no JVD Resp: Auscultation: clear to auscultation bilaterally Cardio: Rate: regular rate Rhythm: regular rhythm Heart sounds: no murmurs GI: Auscultation: normal bowel sounds Skin: General skin exam: normal color Neuro: General: No confusion Cranial nerves: Yes Equal, round and reactive pupils present and Yes Normal hearing present Cognition (Neuro): normal cognition Extrem: General: normal to inspection and no edema Psych: Mental Status: mental status grossly normal Objective Data Vital Signs Vital Signs: Vital Signs - 24 hr 08/16/21 12:00 08/16/21 14:00 08/16/21 16:00 Temperature 36.2 C L Pulse Rate 6
== END 2021-08-17 11:13 | disposition home or self-care (01) ==
LOC: ANHED 22:02 → ANHCPC 23:47
PROVIDERS: Physician Assistant; Admitting Provider Internal Medicine; Emergency Provider Emergency Medicine; Visit Provider Internal Medicine
DX: I16.0 Hypertensive urgency (principal); I10 Essential (primary) hypertension; R07.9 Chest pain, unspecified; F17.210 Nicotine dependence, cigarettes, uncomplicated; Z20.822 Contact with and (suspected) exposure to COVID-19
CPT/HCPCS: 36415; 71045; 80053; 83690; 84484; 85025; 85380; 85610; 85730; 87502; 93005; 93306; 96361; 96365; 96375; 99285; A9270; C9113; C9803; G0378; J0131; J1885; J2060; J2405; J7040; U0003; U0005